=== PATIENT | female | born 1970 | race Caucasian/White ===

== ENCOUNTER 2017-07-13 02:31 | Emergency (ER) | payer SELFPAY ==
[2017-07-13 03:01] LABS: URINE HCG POC HCG NEGATIVE (Negative)
[2017-07-13 04:00] LABS: AGAP ISTAT 16 mmol/L (6-14); BUN ISTAT 17 mg/dL (8-26); CHLORIDE ISTAT 104 mmol/L (98-110); CREATININE ISTAT 1.1 mg/dL (0.5-1.4); GLUCOSE ISTAT 106 mg/dL (70-99); HEMATOCRIT ISTAT 40 % (36-40); HEMOGLOBIN ISTAT 13.6 g/dL (12-15); ION CA ISTAT 1.22 mmol/L (1.13-1.32); POTASSIUM ISTAT 3.3 mmol/L (3.5-5.0); SODIUM ISTAT 142 mmol/L (135-145); TOT CO2 ISTAT 26 mmol/L (23-32)
== END 2017-07-13 04:34 | disposition home or self-care (01) ==
LOC: ER 02:31
DX: N93.8 Other specified abnormal uterine and vaginal bleeding (principal); Z98.51 Tubal ligation status
CPT/HCPCS: 36415; 80047; 81025; 85014; 85018; 99283

== ENCOUNTER 2020-10-08 23:59 | Emergency (ER) | payer SELFPAY ==
[~2020-10-08] VITALS: Ht 177.8 cm; Wt 81.2 kg
[2020-10-09 02:00] VITALS: BP 120/77
[2020-10-09] MEDS ORDERED: SULF1TAB24 PO (02:14)
[2020-10-09] MEDS ORDERED: SMZ/TMP 800/160MG TABLET. PO ONE (02:15)
--- NOTE | 2020-10-09 02:18 | PHYS DOC ---
Past Medical History Past Medical History: No Pertinent History Past Surgical History: , Tubal ligation Smoking Status: Current Every Day Smoker Additional Information: 06/11 PPD Alcohol Use: None Drug Use: None General Adult EDM: Chief Complaint: VAGINAL PROBLEM HPI: HPI: Patient is a 50yo female presenting for vaginal issue. reports ~3 days ago noticing irritation to right labia. This has worsened and reports today it has become more red and irritated with palpation. No inciting event, changes in medical or trauma/innoculation. Has never had anything like this. No fever, just admits right labia has increased in redness, sometimes itches and is more painf ul with touch Review of Systems: Review of Systems: Fourteen body systems of review of systems have been reviewed. See HPI for pertinent positives and negative responses, other whiteside all other systems are negative, non-pertinent or non-contributory Heart Score: C/O Chest Pain: No Risk Factors: Risk Factors: DM, Current or recent (<one month) smoker, HTN, HLP, family history of CAD, obesity. Risk Scores: Score 0 - 3: 2.5% MACE over next 6 weeks - Discharge Home Score 4 - 6: 20.3% MACE over next 6 weeks - Admit for Clinical Observation Score 7 - 10: 72.7% MACE over next 6 weeks - Early Invasive Strategies Allergies: Allergies: Allergies Coded Allergies Type Severity Reaction Last Updated Verified No Known Drug Allergies 04/17/14 No Physical Exam: PE: Constitutional: Well developed, well nourished, no acute distress, non-toxic appearance. HENT: Normocephalic, atraumatic, bilateral external ears normal, oropharynx moist, no oral exudates, nose normal. Eyes: PERRLA, EOMI, conjunctiva normal, no discharge. Neck: Normal range of motion, no tenderness, supple, no stridor. Cardiovascular: Heart rate regular, sinus rhythm, no murmurs rubs or gallops Lungs & Thorax: Bilateral breath sounds clear to auscultation Abdomen: Bowel sounds normal, soft, no tenderness, no masses, no pulsatile masses. Nonsurgical abdomen, no peritoneal signs : external exam concerning for mildly erythematous right labia without crepitus, erythema, streaking, palpable and/or visual abscess formation or other concerning findings. Speculum placed and vaginal vault and all other findings grossly unremarkable Skin: Warm, dry, no erythema, no rash. Back: No tenderness, no CVA tenderness. Extremities: No tenderness, no cyanosis, no clubbing, ROM intact, no edema. Neurologic: Alert and oriented X 3, grossly normal motor & sensory function, no focal deficits noted. Psychologic: Anxious affect and mood Current Patient Data: Labs: Laboratory Tests Test 10/09/20 00:34 POC Urine HCG, Qualitative Hcg negative (Negative) Vital Signs: Vital Signs Date Time Temp Pulse Resp B/P (MAP) Pulse Ox O2 Delivery O2 Flow Rate FiO2 10/09/20 00:25 98.2 64 18 154/74 (100) 98 Room Air 98.2 EKG: EKG: [] Radiology/Procedures: Radiology/Procedures: [] Course & Med Decision Making: Course & Med Decision Making VSS. HPI concerning for vaginal abnormality, PE consistent with early right Bartholin gland cyst without indications for I&D or other invasive management I did disclosed this might be an acute presentation of more concerning pathology such as necrotizing fascitis/Sayda's etc but this is unlikely. Joint-decision made to start antibiotic treatment with close PCP/[facility]NER follow- up in outpatient setting to ensure continued resolution of symptoms Strict return precautions discussed, patient given dose of Bactrim while in ER and tolerated this well, she was educated on side effects such as kidney involvement, skin changes etc Dragon Disclaimer: [place] Disclaimer: This electronic medical record was generated, in whole or in part, using a voice recognition dictation system. Departure Departure Impression: Primary Impression: Bartholin's gland cyst Disposition: HOME / SELF CARE / HOMELESS Condition: GOOD Referrals: NO PCP (PCP) Patient Instructions: Bartholin's Cyst or Abscess, Sulfamethoxazole; Trimethoprim, SMX-[id number] tablets Additional Instructions: As discussed prior to ER departure, you are likely experiencing an infection along the side/labia of your vagina. Your physical exam was nonconcerning for any emergent or surgical findings, there was no indication for incision and drainage given size and appearance. With that said, I disclosed high risk nature of potential worsening of likely infectious process that could develop into other abnormalities. As such, joint decision was made to start an antibiotic for this. You were given Bactrim, this was administered to prior to ER departure and you tolerated this well. Please take this as described until completion. You are educated on side effects of medication that include renal injury, skin changes and other abnormalities that can be read about in further detail with the resources attached. If any of these signs or symptoms present, stop the drug immediately and present for medical evaluation. As also mention, I recommend sits baths at least twice a day soaking region in hot water. Abstain from vaginal intercourse. I recommend you establish with local primary care physician and DIRECT CARE COUNSELOR for close ER follow-up. If any concerning signs or symptoms present prior to outpatient follow-up please do not hesitate to come back for repeat evaluation. It was a pleasure to take care of you and I wish you the best going forward Scripts Sulfamethoxazole/Trimethoprim (BACTRIM DS TABLET) 1 Each Tablet 1 TAB PO BID for 5 Days, #13 TAB 0 Refills Prov: ALESIA SPARROW DO 10/09/20 ALESIA SPARROW DO October 09, 2020 02:18
== END 2020-10-09 02:48 | disposition home or self-care (01) ==
LOC: ER 23:59
DX: N75.0 Cyst of Bartholin's gland (principal); F17.200 Nicotine dependence, unspecified, uncomplicated; Z98.51 Tubal ligation status
CPT/HCPCS: 81025; 99284